=== PATIENT | female | born 1990 | race Hispanic/Latino ===

== ENCOUNTER 2017-04-01 19:26 | Inpatient (IN) | payer MEDICAID ==
[~2017-04-01] VITALS: Ht 147.3 cm; Wt 73.5 kg
[~2017-04-01 19:26] MED LIST: ACYC400T17 PO; PREN1TAB73 PO
[2017-04-01 20:41] LABS: Mean Corpuscular Hemoglobin 31.6 pg (27.0-35.0); Mean Corpuscular Volume 90.5 fL (81-100)
[2017-04-01 21:30] LABS: APPEARANCE,URINE CLEAR (CLEAR,HAZY); COLOR,URINE YELLOW (YELLOW); OCCULT BLOOD,URINE NEGATIVE (NEGATIVE); PH,URINE 5.5 (5.0-8.0); UROBILINOGEN,URINE NORMAL (NORMAL)
--- NOTE | 2017-04-01 22:02 | DRSVH ---
PROCEDURE: US OB BIOPHYSICAL PROFILE AND UMBILICAL DOPPLER INDICATIONS: FOR WELL BEING OUTSIDE/PRIOR DATING DATA: Last menstrual period (LMP): 07/14/16. LMP-based estimated date of delivery (REYMUNDO): 04/20/17. First dating scan (date and location): 03/29/17. Estimated date of delivery (REYMUNDO) from first dating scan: 04/12/17. TECHNIQUE: Real-time scanning was performed of the fetus for biophysical profile, with image documentation. Col or and pulse Doppler interrogation was also performed of the umbilical artery near its insertion into the placenta. COMPARISON: None. FINDINGS: General: A single living intrauterine gestation is present. Presentation: Vertex Placenta: Placental position is posterior, without previa. Nuchal cord is noted. tone: 2/2 Movement: 2/2 Respiration: 2/2 Largest pocket: 3.7 CM. 2/2 IMPRESSION: Biophysical profile of 8/8. Nuchal cord is noted. Dictated by: Smooth Marques M.D. on 04/01/2017 at 21:57 Approved by: Smooth Marques M.D. on 04/01/2017 at 22:00
[2017-04-01] MEDS ORDERED: Penicillin G K Inj 5,000,000 UNITS in Dextrose 5% Minibag Plus 100 ML IV ONE (23:35)
[2017-04-01] MEDS ORDERED: Sodium Chloride LOK Flush 10 mL Syringe IVFLUSH PRN (23:35)
[2017-04-01] MEDS ORDERED: Oxytocin 10 Unit/mL Inj IM PRN (23:35)
[2017-04-01] MEDS ORDERED: Methylergonovine 0.2 mg/mL Inj IM PRN (23:35)
[2017-04-01] MEDS ORDERED: Ondansetron 2 mg/mL 2 mL Inj IVPUSH PRN (23:35)
[2017-04-01] MEDS ORDERED: Oxytocin 30 Units/500 mL LR 30 UNITS in IV Premix 1 EACH IV PRN (23:35)
[2017-04-01] MEDS ORDERED: fentaNYL-PF 50 mCg/mL 2 mL Inj IVPUSH PRN (23:35)
[2017-04-01] MEDS ORDERED: Hemorrhage Kit, Post Partum XX ONE (23:35)
[2017-04-01] MEDS ORDERED: Carboprost 250 mCg/mL Inj IM PRN (23:35)
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
[2017-04-02] MEDS: Lactated Ringer's 1,000 ML IV PRN ×2 (00:54→01:01)
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
[2017-04-02] MEDS ORDERED: Sodium Citrate-Citric Acid 15 mL Solution ONE (02:18)
[2017-04-02] MEDS ORDERED: Sodium Citrate-Citric Acid 15 mL Solution PO SCH (02:30)
[2017-04-02] MEDS ORDERED: CeFAZolin Inj 2,000 MG in Dextrose 5%-Pha MIX 50 ML IV ONE (03:15)
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
[2017-04-02] MEDS ORDERED: EPHEDrine Sulfate 50 mg/mL Inj IVPUSH PRN (03:55)
[2017-04-02] MEDS ORDERED: Ondansetron 2 mg/mL 2 mL Inj IVPUSH PRN ×2 (03:55→04:55)
[2017-04-02] MEDS ORDERED: Dexamethasone 4 mg/mL Inj IVPUSH PRN (03:55)
[2017-04-02] MEDS ORDERED: fentaNYL-PF 50 mCg/mL 2 mL Inj IVPUSH PRN (03:55)
[2017-04-02] MEDS ORDERED: HYDROmorphone 1 mg/mL Inj IVPUSH PRN (03:55)
[2017-04-02] MEDS ORDERED: Atropine 0.4 mg/mL Inj IV PRN (03:55)
[2017-04-02] MEDS ORDERED: MetoCLOpramide 5 mg/mL 2 mL Inj IVPUSH PRN (03:55)
[2017-04-02] MEDS ORDERED: Morphine PF 1 mg/mL 10 mL Inj INTRATHEC ONE (03:55)
[2017-04-02] MEDS ORDERED: Penicillin G K Inj 3,000,000 UNITS in IV Premix 1 EACH IV SCH (04:30)
--- NOTE | 2017-04-02 04:49 | PCM.ANEP1 ---
Post Anesthesia PACU Phase 1 Assessment Vital Signs Vital Signs Date Time Temp Pulse Resp B/P Pulse Ox O2 Delivery O2 Flow Rate FiO2 04/02/17 00:54 70 Anesthetic Administered: SAB Level of Alertness: Awake, talking ROBIN's with Equal Strength: No Pain: No Nausea or Vomiting: No CV Function & Hydration Stable: No Airway Device: Oxygen Delivery: Room Air Lungs: Clear to Auscultation, Normal Air Movement Dermatome Level: T10 (Umbilicus) PACU Phase 2 Assessment Complications: No Follow up Care: N/A Patient Instructions Provided: N/A Jeremy Solorio MD Apr 02, 2017 04:49
[2017-04-02] MEDS ORDERED: Lactated Ringer's 1,000 ML IV SCH (04:53)
[2017-04-02] MEDS ORDERED: hydrOXYzine Pamoate 25 mg Capsule PO PRN (04:55)
[2017-04-02] MEDS ORDERED: Acetaminophen IV 1,000 MG in IV Premix 1 EACH IV PRN (04:55)
[2017-04-02] MEDS ORDERED: Hemorrhage Kit, Post Partum XX ONE (04:55)
[2017-04-02] MEDS ORDERED: Oxytocin 10 Unit/mL Inj IM PRN (04:55)
[2017-04-02] MEDS ORDERED: Ondansetron 8 mg ODT Tablet PO PRN (04:55)
[2017-04-02] MEDS ORDERED: Carboprost 250 mCg/mL Inj IM PRN (04:55)
[2017-04-02] MEDS ORDERED: Methylergonovine 0.2 mg/mL Inj IM PRN (04:55)
[2017-04-02] MEDS ORDERED: LANOlin HPA 7 Gm Ointment TOPICAL PRN (04:55)
[2017-04-02] MEDS ORDERED: Promethazine 50 mg Rectal Suppository RECTAL PRN (04:55)
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
[2017-04-02 13:08] VITALS: BP 126/66; PULSE 80; RESP 20; O2SAT 99
[2017-04-02] MEDS ORDERED: Propofol 10,000 mCg/mL 20 mL Inj ONE (15:15)
[2017-04-02] MEDS ORDERED: Morphine PF 1 mg/mL 10 mL Inj ONE (15:15)
[2017-04-02] MEDS ORDERED: Oxytocin 10 Unit/mL Inj ONE (15:15)
[2017-04-02] MEDS ORDERED: Phenylephrine/NS-PF 100 mCg/mL 5 mL Syringe IVPUSH ONE (15:15)
[2017-04-02] MEDS: Ascorbic Acid 500 mg Tablet PO SCH (20:05)
[2017-04-03] MEDS: oxyCODONE-Acetamin 5-325 mg Tablet PO PRN ×5 (02:56→21:51)
[2017-04-03 06:53] LABS: Mean Corpuscular Hemoglobin 31.4 pg (27.0-35.0); Mean Corpuscular Volume 92.1 fL (81-100)
[2017-04-03] MEDS: Ascorbic Acid 500 mg Tablet PO SCH (08:16)
[2017-04-03 13:14] VITALS: BP 108/56; PULSE 75; RESP 16; O2SAT 95
[2017-04-04] MEDS: oxyCODONE-Acetamin 5-325 mg Tablet PO PRN ×4 (02:05→19:25)
[2017-04-04] MEDS: Ascorbic Acid 500 mg Tablet PO SCH (07:49)
--- NOTE | 2017-04-04 11:33 | PATH ---
SURGICAL PATHOLOGY Attending Physician:Lizzie Shipley CASE STATUS: Signed Out PATIENT NAME: MANAS GODINEZ PID: [id number] : 04/24/1987 DATE COLLECTED:04/02/2017 17:13 SPECIMEN: Placenta CLINICAL HISTORY: GDM NONREASSURING HEART TONES 1. PLACENTA FINAL DIAGNOSIS: 1.PLACENTA WITH UMBILICAL CORD AND MEMBRANES: 1. PLACENTA: 312 GRAMS, WHICH IS APPROXIMATELY THE THIRD PERCENTILE FOR 38 WEEKS 4 DAYS GESTATION. MULTIPLE PLACENTAL INFARCTS INVOLVING APPROXIMATELY 25% OF THE PLACENTAL DISK. NEGATIVE FOR INFLAMMATION. 2.UMBILICAL CORD: 5.8 CM IN LENGTH WITH THREE NORMAL BLOOD VESSELS. CORD ATTACHED 6.2 CM FROM THE PLACENTAL EDGE. NEGATIVE FOR SIGNIFICANT INFLAMMATION. 3. MEMBRANES: RUPTURED AT THE FREE EDGE OF THE PLACENTA. NEGATIVE FOR SIGNIFICANT INFLAMMATION. ICD10 O43.813 O76 GROSS DESCRIPTION: The specimen is received in formalin, labeled with the patient's name and consists of an intact placenta and includes placental disc (312 g, 15.0 x 14.7 x 2.5 cm), umbilical cord (length-5.8 cm, diameter-1.2 x 0.8 cm) and membranes. The membranes are ruptured at the free edge of the placenta and are semi-translucent. The umbilical cord is attached 6.2 cm from the edge of the placenta and contains 3 vessels. The surface is smooth and shiny with a lindquist-white fibrous rim involving approximately 25% of the placenta (up to 4.5 cm wide). No evidence of meconium is identified. The maternal surface is dark maroon with normal cotyledon formation. The placental disc is spongy and contains multiple yellow-orange fibrous nodules (0.5 x 0.4 x 0.2 cm-1.5 x 0.7 x 0.5 cm) involving approximately 25% of the placenta. No hematomas, masses, or lesions are identified. Section code: (A) edge of placenta with membranes; (B) umbilical cord; (C-F) placenta, 4 full thickness sections. 04/03/17 JM MICRO DESCRIPTION: See diagnosis. ICD-9 CODES: CPT CODES: 1: 95156 Electronically Signed Out Andrade Boss MD [facility] Pathology [facility] [address], [place] [address] Technical component performed at [facility], [address], [place], [address]
--- NOTE | 2017-04-04 16:38 | PCM.DIMED ---
Discharge Instructions Date of Service Apr 04, 2017 Dates of Hospitalization Apr 01, 2017 at 23:13 Diet Discharge Diet: No restrictions Activity Discharge Activity: No restrictions Call your provider Call your provider for: Fever or Chills, Shortness of breath, Bleeding, Chest pain, Vomitting, Excessive diarrhea, Weakness (unilateral), Other (increasing headache) Patient Instructions Follow-up with PCP in: 2 weeks Rafiq Colon MD Apr 04, 2017 16:38
[2017-04-04] MEDS ORDERED: FERR-74 PO (16:42)
[2017-04-04] MEDS ORDERED: OXYC1TAB24 PO (16:42)
[2017-04-04] MEDS ORDERED: CEPH-512 PO (16:42)
[2017-04-04] MEDS ORDERED: BUTA1CAP16 PO (16:42)
[2017-04-04] MEDS ORDERED: IBUP800T28 PO (16:42)
[2017-04-04 16:58] VITALS: BP 117/66; PULSE 64; RESP 20
--- NOTE | 2017-04-04 18:00 | DIS ---
[address] [address] DISCHARGE SUMMARY PATIENT: MANAS LEWIS : 1990 MR#: [id number] ADMIT: 04/01/2017 JOB ID: [id number] DIS: ADMITTING DIAGNOSIS: 1. Intrauterine , 38 weeks and 4 days. 2. Active labor. 3. Gestational diabetes. DISCHARGE DIAGNOSIS: 1. Intrauterine at 38 weeks and 4 days. 2. Primary low transverse section for failed induction of labor. 3. Gestational diabetes. HOSPITAL COURSE: The patient is a 26-year-old, 4, para 3 now who was admitted at 38 weeks and 3 days gestation, in active labor. She had artificial rupture of membranes followed by augmentation of labor with oxytocin. She had some variable decelerations that initially were getting better with amnioinfusion but eventually they did not improve and worsening. At that time the patient was 4 cm dilated. There was no significant cervical change management manager two hours. Decision was made to proceed with primary low transverse delivery. The surgery went uncomplicated, estimated blood loss 500 mL. Delivered a female with weight 2516 g, scores 9 at 1 minute and 9 at 5 minutes. The delivery was done on April 02, 2017. The patient stayed in the hospital postoperatively for two days. On postoperative day 1, April 03, 2017, she was breast-feeding. Dressing was removed. The skin was intact and dried. Steri-Strips were intact. The fundus was at the level of the umbilicus. The patient was stable, afebrile. There was no vaginal bleeding or abnormal vaginal discharge. On day two, postoperative day 2, April 04, 2017, the patient was complaining of intermittent headache fluctuating in intensity between 2/10 to 6/10. It was relieved with Tylenol p.r.n. On exam she had a firm fundus. The were no problems with the incision except for mild hyperemia on the upper aspect of it and a slight warmness. Labs on postoperative day one showed a WBC count of 8.5, hemoglobin 11.6, hematocrit 34.0, platelet count 120. The patient was willing to go home. Because of some concerns about the possibility of beginning cellulitis she was given prescriptions for Keflex 500 mg p.o. t.i.d. for 10 days, and fiorinal was provided for p.r.n. use for the headache with close followup, and followup postoperatively in the clinic with [facility] in two weeks. The patient also received ferrous sulfate 325 mg p.o. b.i.d., Colace 100 mg p.o. b.i.d., ibuprofen 800 mg p.o. t.i.d. p.r.n. for pain. She was sent home on postoperative day two, April 04, 2017, with all discharge criteria met.
== END 2017-04-04 22:20 | disposition home or self-care (01) | DRG 540 ==
LOC: FBCO 19:26 → FBC 23:13
PROVIDERS: ADMIT Obstetrics & Gynecology; ATTEND Legal Medicine
PROC: 10907ZC Drainage of Amniotic Fluid, Therapeutic from Products of Conception, Via Natural or Artificial Opening (ICD-10-PCS; 2017-04-02)
PROC: 10D00Z1 Extraction of Products of Conception, Low, Open Approach (ICD-10-PCS; principal; 2017-04-02 02:35)
DX: O76 Abnormality in fetal heart rate and rhythm complicating labor and delivery (principal); O98.52 Other viral diseases complicating childbirth; O98.82 Other maternal infectious and parasitic diseases complicating childbirth; O24.420 Gestational diabetes mellitus in childbirth, diet controlled; Z3A.38 38 weeks gestation of pregnancy; Z37.0 Single live birth; O99.824 Streptococcus B carrier state complicating childbirth; B00.9 Herpesviral infection, unspecified; O69.81X0 Labor and delivery complicated by cord around neck, without compression, not applicable or unspecified